=== PATIENT | female | born 1955 | race Caucasian/White ===

== ENCOUNTER 2016-08-07 06:14 | Day surgery (SDC) | payer OTHER ==
[2016-08-06 14:56] LABS: HEMATOCRIT 38.8 % (36.0-48.0)
[~2016-08-07 06:14] MED LIST: [UNRECOGNIZED DRUG - OTHER]
== END 2016-08-07 23:59 | disposition home or self-care (01) ==
LOC: MSC 06:14
PROVIDERS: Surgery Plastic and Reconstructive Surgery
PROC: 0W020ZZ Alteration of Face, Open Approach (ICD-10-PCS; principal; 2016-08-07 07:15)
DX: H02.401 Unspecified ptosis of right eyelid (principal); L98.8 Other specified disorders of the skin and subcutaneous tissue; Z85.828 Personal history of other malignant neoplasm of skin; Z98.890 Other specified postprocedural states
CPT/HCPCS: 85014; 85018; 93005; A9270-GY; C1713; J0690; J2250; J2710; J3010